=== PATIENT | female | born 1960 | race American Indian/Alaskan Native ===

== ENCOUNTER 2016-09-17 17:09 | Emergency (ER) | payer OTHER ==
[2016-09-17 17:54] VITALS: BMI 33.6
[2016-09-17 17:59] VITALS: TEMP 99.6
[2016-09-17 18:51] VITALS: O2SAT 99
--- NOTE | 2016-09-17 18:53 | ED PDOC ---
Arrival/HPI - General Chief Complaint: Upper Extremity Problem/Injury Time Seen by Provider: 09/17/16 17:57 Historian: Patient - History of Present Illness Narrative History of Present Illness (Text): 09/17/16 18:30 A 55 year old female, whose past medical history includes hypertension (on diovan and norvasc), presents to the emergency department with multiple complaints. The patient complains of a high blood pressure of 179/110 this morning. Patient report she took both of her medications today and her pressure has been slowly decreasing. Patient also complains of positional right shoulder tightness/stiffness since this morning. Patient denies any trauma/injury. She denies any elbow pain, chest pain, shortness of breath, dizziness or any other complaints at this time. PMD: Dr. Molina Time/Duration: 4-6 hours Symptom Onset: Sudden Symptom Course: Unchanged Quality: Tightness Activities at Onset: Rest Modifying Factors (Text): worse with certain movements Context: Home Past Medical History - Provider Review Nursing Documentation Reviewed: Yes - Cardiac Hx Hypertension: Yes - Psychiatric Hx Substance Use: No - Surgical History Hx Hysterectomy: Yes Family/Social History - Physician Review Nursing Documentation Reviewed: Yes Family/Social History: No Known Family HX Smoking Status: Never Smoked Hx Alcohol Use: Yes Frequency of alcohol use: Socially Hx Substance Use: No Allergies/Home Meds Allergies/Adverse Reactions: Allergies No Known Allergies Allergy (Verified 09/17/16 17:54) Home Medications: Home Meds Medication Instructions Recorded Confirmed Valsartan/Hydrochlorothiazide 1 tab PO DAILY 09/17/16 09/17/16 [Valsartan and Hydrochlorothiazide 25 mg-160 M] amLODIPine [Norvasc] 2.5 mg PO DAILY 09/17/16 09/17/16 Physical Exam - Physical Exam Narrative Physical Exam (Text): - Review of Systems Constitutional: High Blood Pressure. absent: Fatigue, Weight Change, Fevers Eyes: Normal ENT: Normal Respiratory: Normal absent: SOB, Cough, Sputum Cardiovascular: Normal absent: Chest pain, Palpitations, Syncope Gastrointestinal: Normal absent: Abdominal pain, Diarrhea, Nausea, Vomiting Genitourinary: Normal. absent: Dysuria, Frequency, Hematuria Musculoskeletal: Right shoulder pain. absent: Arthralgias, Back Pain, Neck Pain Skin: Normal Neurological: Normal absent: Focal Weakness Endocrine: Normal Hemo/Lymphatic: Normal Psychiatric: Normal - Physical exam Patient appears age appropriate, speaking full sentences without difficulty - Systems Exam Head: Present: Atraumatic, Normocephalic Pupils: Present: PERRL Extraocular Muscles: Present: EOMI Conjunctiva: Present: Normal Mouth: Present: Moist Mucous Membranes Neck: Present: Normal Range of Motion. No: MIDLINE TENDERNESS, Paraspinal Tenderness Respiratory/Chest: Present: Clear to Auscultation, Good Air Exchange. No: Respiratory Distress, Accessory Muscle Use, Tachypneic Cardiovascular: Present: Regular Rate and Rhythm, Normal S1, S2, Peripheral Pulses Present. No: Murmurs Abdomen: Present: Normal Bowel Sounds, No: Tenderness, Peritoneal Signs, Rebound, Guarding, Distention Back: Present: Normal Inspection. No: Midline Tenderness, Paraspinal Tenderness Upper Extremity: Present: Reproducible right shoulder pain with flexion and abduction. No: Cyanosis, Edema Lower Extremity: Present: Normal Inspection. No: Edema Neurological: Present: GCS=15, Speech Normal, cranial nerves II through XII fully intact with no cerebellar abnormality, neuro-sensory fully intact. No focal neurological deficits. Skin: Present: Warm, Dry, Normal Color. No: Rashes Lymphatic: Present: OX3, NI, NC Psychiatric: Present: Alert, Oriented x 3, Normal Insight, Normal Concentration Vital Signs Reviewed: Yes Vital Signs Temp Pulse Resp BP Pulse Ox 09/17/16 18:49 92 H 16 126/82 99 09/17/16 17:58 99.6 F 101 H 17 134/92 H 98 Temperature: Afebrile Blood Pressure: Hypertensive Pulse: Regular Respiratory Rate: Normal Appearance: Positive for: Well-Appearing, Non-Toxic, Comfortable Pain Distress: None Mental Status: Positive for: Alert and Oriented X 3 Medical Decision Making ED Course and Treatment: 09/17/16 18:30 Impression: A 55 year old female with a high blood pressure and positional reproducible right shoulder pain. On physical examination, patient pain to the right arm is reproducible with flexion and abduction of the arm. Differential Diagnosis included but are not limited to: Atypical ACS vs. musculoskeletal Plan: -- EKG -- Right Shoulder X-ray -- Reassess and disposition Progress Notes: 09/17/16 21:21 pt's xray shows no acute fx's or dislocation. Small component of calcific tendonitis. had an extensive d/w pt that although xrays are negative for any acute bony abnormality, it is still very important to fu with pmd and ortho specialist for further w/u and testing such as MRI to r/o any ligamentous/tendenous/meniscal injury. Pt verbalized full understanding of above discussion. pt's repeat BP 120's / 80's pt states her shoulder pain still present toradol IM ordered I explained to pt that her symptoms may be related to cardiac etiology. I recommended cardiac workup in the hospital. patient refused, asking to be dc'd home. I have gone over the risks of leaving. Patient states she fully understands, but wants to leave and will f/u with Dr. Molina in the next 1-2 days. Pt states she understands to return to the ER right away for new or worsening symptoms or for inability to f/u with PMD or specialist as instructed. Patient states that she fully agrees with and understands discharge instructions. States that she agrees with the plan and disposition. Verbalized and repeated discharge instructions and plan. I have given the patient opportunity to ask any additional questions. - RAD Interpretation Radiology Orders: 09/17/16 18:44 SHOULDER RIGHT [RAD] Stat - Scribe Statement The provider has reviewed the documentation as recorded by the Scribe Raji Herr Provider Scribe Attestation: All medical record entries made by the Scribe were at my direction and personally dictated by me. I have reviewed the chart and agree that the record accurately reflects my personal performance of the history, physical exam, medical decision making, and the department course for this patient. I have also personally directed, reviewed, and agree with the discharge instructions and disposition. Disposition/Present on Arrival - Present on Arrival Any Indicators Present on Arrival: No History of DVT/PE: No History of Uncontrolled Diabetes: No Urinary Catheter: No History of Decub. Ulcer: No History Surgical Site Infection Following: None - Disposition Have Diagnosis and Disposition been Completed?: Yes Diagnosis: Hypertension, Shoulder pain Disposition: HOME/ ROUTINE Disposition Time: 21:34 Patient Plan: Discharge Condition: GOOD Discharge Instructions (ExitCare): Shoulder Pain (ED), Hypertension (ED) Additional Instructions: PLEASE RETURN TO THE EMERGENCY DEPARTMENT FOR NEW OR WORSENING SYMPTOMS. RETURN RIGHT AWAY IF YOU CANNOT FOLLOW UP WITH YOUR PRIMARY CARE DOCTOR, CLINIC, OR SPECIALIST IN 1-2 DAYS. Prescriptions: Ibuprofen [Motrin] 600 mg PO Q8 PRN #12 tab PRN Reason: Pain, Moderate (4-7) Referrals: Willie Molina, [Primary Care Provider] - Follow up with primary Forms: WORK NOTE
[2016-09-17 21:21] VITALS: BP 129/86; PULSE 88; RESP 17
--- NOTE | 2016-09-18 08:55 | RAD ---
PROCEDURE: Radiographs of the Right Shoulder HISTORY: pain COMPARISON: No prior. FINDINGS: BONES: There is bone demineralization. There is no acute displaced fracture. Bone alignment is normal. JOINTS: Normal. Glenohumeral and acromioclavicular joints preserved. No osteoarthritis. SOFT TISSUES: There is faint calcification lateral to the humeral head. OTHER FINDINGS: None. IMPRESSION: No acute displaced fracture or dislocation. Faint calcification lateral to the humeral head could represent calcific tendinitis.
--- NOTE | 2016-09-18 12:05 | CARD ---
APPROVED REPORT EKG Measurement Heart [id number] MD [id number] <Conclusion> Normal sinus rhythm Minimal voltage criteria for LVH, may be normal variant Borderline ECG
--- NOTE | 2016-09-18 12:06 | CARD ---
APPROVED REPORT EKG Measurement Heart [id number] [place] [id number] <Conclusion> Normal sinus rhythm Nonspecific T wave abnormality Abnormal ECG
== END 2016-09-17 21:41 | disposition home or self-care (01) ==
LOC: ED 17:09
DX: I10 Essential (primary) hypertension (principal); M25.511 Pain in right shoulder
CPT/HCPCS: 73030; 93005; 96372; 99283; J1885